=== PATIENT | male | born 1995 | race African-American/Black ===

== ENCOUNTER → 2017-04-26 | Outpatient (CLI) | payer OTHER ==
--- NOTE | 2017-04-27 09:33 | RADIOLOGY REPORT (SQ) ---
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 Images not provided for comparison RADIONUCLIDE AND DOSE: 11.4 mCi F18 FDG The route of agent administration: Intravenous FASTING BLOOD SUGAR: 75 mg/dl CONTRAST TYPE AND DOSE: No CT contrast given. TECHNIQUE: Blood glucose level was verified. Above dose of FDG was injected intravenously. 2-D seg mented attenuation correction images were obtained through the entire body. Noncontrast CT images we re obtained for attenuation correction and fusion with emission images. CT images were performed wit hout oral or intravenous contrast and are not sensitive for parenchymal lesions. A series of overlap ping emission PET images were obtained. Images reviewed and manipulated at independent work station by the radiologist. Images stored on PACS. LIMITATIONS: None. FINDINGS: HEAD AND NECK: No areas of abnormal metabolic activity in the soft tissues of the head and neck. CHEST: A very thin rim of uptake is seen in the anterior mediastinum along minimal residual thymic ti ssue, with SUV of 2.2. Residual thymic tissue with activity measures 1.7 by 1.7 cm on axial image 11 9. ABDOMEN AND PELVIS: No areas of abnormal metabolic activity in the abdomen or pelvis. Expected physi ologic activity is present in the genitourinary system and bowel. LOWER EXTREMITIES: No areas of abnormal metabolic activity in the soft tissues of the lower extremiti es. BONES: No abnormal metabolic activity in the visualized skeleton. Specifically, no increased uptake is seen in the medullary space along the distal 3rd left femoral diaphysis ADDITIONAL CT FINDINGS: No additional significant findings on the noncontrast CT images. OTHER: Liver background activity 1.8 SUV. Blood pool activity 1.2 SUV. IMPRESSION: No persistent metabolic activity in the distal left femoral diaphysis. Minimal activity in thymic tissue, of uncertain clinical significance. TECHNICAL DOCUMENTATION: JOB ID: [id number] [employer]- All Rights Reserved
== END ==
LOC: RAD 15:50
PROVIDERS: ATTEND Internal Medicine
DX: C83.30 Diffuse large B-cell lymphoma, unspecified site (principal)
CPT/HCPCS: 78816; A9552